=== PATIENT | male | born 2005 | race Caucasian/White ===

== ENCOUNTER 2025-01-16 14:13 | Emergency (ER) | payer MEDICAID, SELFPAY ==
[2025-01-16 14:17] VITALS: BP 125/80; PULSE 68; RESP 18; TEMP 36.7; O2SAT 96
--- NOTE | 2025-01-16 14:52 | ED.GENADUL_ITS ---
Discharge Plan Disposition Patient Disposition: Home Condition: Good Discharge Details Clinical Impression: Pain in right testicle Primary Care Provider: Isela,Local ED Provider: Demar Wynn Recommendations for Follow Up Recommended tests to be ordered by follow up provider: Ultrasound of the testicles to assess for possible causes of pain to include hydrocele, or varicocele Home Meds and New Rx's Prescriptions: New ibuprofen 600 mg tablet 600 mg PO Q6H PRNQty: 30 0RF Discharge Instructions Instructions: Testicular Torsion, Adult Additional Instructions: Please follow-up with your primary care provider regarding your visit to the emergency department today. Be sure to discuss results of all test performed here today to include radiology, and laboratory testing as well as results for any pending cultures. As discussed please try anti-inflammatories and supportive undergarments to manage your pain. If your symptoms persist please discuss referral to a urologist or your primary care provider. Should your symptoms worsen, or if you develop new concerning symptoms such as swelling of the testicle, changes of the skin of the scrotum, please return immediately emergency department for further evaluation. HPI General Date/Time Provider Initiated Documentation: 01/16/25 14:15 . HPI Narrative: MDM/Narrative: 19-year-old male with testicular pain for 3 days, pinching on right side, intermittent mild discomfort, alleviated by standing. No trauma, significant swelling, or hardening. Physical exam: no masses, enlargement, or hardness. TWIST score 1. Differential: Testicular torsion unlikely given low risk score. Varicoceles or hydroceles possible, offered outpatient ultrasound however family is not local and will follow-up with your doctor. UTI: Unlikely based on symptoms but will screen with UA. Orchitis: No significant tenderness, or overlying skin change making this unlikely STI: Patient is not sexually active. Ibuprofen administered, urinalysis conducted. Outpatient ultrasound recommended. Discharge: Home, outpatient ultrasound. Follow-up with urologist if pain persists. Advised supportive restrictive underwear. 1549 UA not consistent with infection. Plan of care discussed with the patient's mother and himself who are agreeable to plan for discharge follow-up primary care for outpatient ultrasound or return to emergency department should he develop worsening pain, testicular/scrotal changes or any other new or concerning symptoms. This document was created with assistance from [employer] The patient consented to its use. Disposition: Home HPI: The patient is a 19-year-old male who has been experiencing testicular pain for the past three days. Initially, he felt a pinching sensation on the right side while driving, which was followed by constant mild discomfort. This morning, the pain intensified on the right side. Last night, he noticed redness in his scrotum and perceived his right testicle to be smaller, although it has now returned to its normal size. He vomited this morning after waking up early. He reports no cough, sore throat, runny nose, burning with urination, or diarrhea. There has been no trauma or straddle injury, although he has had frequent falls recently. He is not sexually active and does not experience pain or blood during masturbation. Standing seems to alleviate the discomfort, while lying down worsens it. Tylenol has provided minimal relief. ROS: Negative besides as mentioned above Exam: Vital signs: Reviewed. General Appearance: Alert and oriented. No acute distress. HEENT: NCAT, EOMI, not icteric. External ears normal. No rhinorrhea. Moist mucous membranes. Neck: Supple, full range of motion, no observable masses, No meningeal sign. Respiratory: No Respiratory distress. No tachypnea. Cardiovascular: RRR, no edema. Gastrointestinal: Soft, nondistended, No rebound tenderness. Genitourinary: Male: Supervisor Area: [place]. Cremasteric reflex present. No masses, enlargement, or hardness. Mild tenderness on right testicle. Normal lay of the testes bilaterally. Back: No midline tenderness to palpation or palpable step-offs of the C/T/L spine. Skin: Warm and dry, no rash. Neurological: Normal Gait, Grossly intact. Psychiatric: Appropriate for situation. Labs: Laboratory Tests Range/Units 01/16/ 15:30 Urine Color (Yellow) Yellow Urine Clarity (Clear) Clear Urine pH (5-8) 8.5 H Ur Specific [place] (1.005-1.025) 1.015 Urine Protein (Neg-Trace) mg/dL Negative Urine Ketones (Negative) mg/dL Negative Urine Blood (Negative) Negative Urine Nitrite (Negative) Negative Urine Bilirubin (Negative) Negative Urine Urobilinogen (Up to 0.2) mg/dL 1.0 H Ur Leukocyte Esterase (Negative) Negative Urine Glucose (Negative) mg/dL Negative Related Data Home Medications ?Medication ?Instructions ?Recorded ?Confirmed ibuprofen 600 mg tablet 600 mg PO Q6H PRN #30 tabs 0 01/16/25 Previous Rx's ?Medication ?Instructions ?Recorded ibuprofen 600 mg tablet 600 mg PO Q6H PRN #30 tabs 0 01/16/25 Allergies Allergy/AdvReac Type Severity Reaction Status Date / Time No Known Allergies Allergy Verified 01/16/25 14:21 General Stated Complaint: Male Reproductive Problem FREDY: 3 Course Vital Signs Vital signs: Vital Signs Temperature 36.7 C 01/16/25 14:17 Pulse 68 01/16/25 14:17 Respiratory Rate 18 01/16/25 14:17 Blood Pressure 125/80 01/16/25 14:17 Pulse Oximetry 96 01/16/25 14:17 Temperature 36.7 C 01/16/25 14:17 Temperature Source Oral 01/16/25 14:17 Pulse 68 01/16/25 14:17 Respiratory Rate 18 01/16/25 14:17 Blood Pressure 125/80 01/16/25 14:17 Blood Pressure Position Sitting 01/16/25 14:17 Pulse Oximetry 96 01/16/25 14:17 Oxygen Delivery Method Room Air 01/16/25 14:17 Oxygen Flow Rate 0 01/16/25 14:17 Pain Level 5 01/16/25 14:17 PFSH All Active Problems (Updated 01/16/25 @ 15:54 by Demar Wynn MD) Pain in right testicle (Acute) Social History Smoking/Tobacco Use Status: Current every day Tobacco Type: e-cigarettes Smoking risk assessment performed?: Yes Alcohol Intake: current Alcohol Intake frequency: a few times a month Drug use: Daily Substance use type: marijuana Do you feel safe at home: Yes
[2025-01-16] MEDS: Ibuprofen 600 MG TAB PO (14:55)
[2025-01-16 15:37] LABS: Glucose Negative (Negative)
== END 2025-01-16 16:11 | disposition home or self-care (01) ==
PROVIDERS: Emergency Provider General Practice
DX: N50.811 Right testicular pain (principal)
CPT/HCPCS: 99283 ×2; 81003